=== PATIENT | male | born 1940 | race Caucasian/White ===

== ENCOUNTER 2020-11-01 22:30 | Emergency (ER) | payer MEDICARE ==
[2020-11-01 23:24] LABS: INR-International Normal Ratio 2.5; PTT 40.4 sec (22.0-33.0); Prothrombin Time 26.9 sec (9.5-12.1)
[2020-11-01 23:53] LABS: #Basophils 0.1 10x3/uL (0.0-0.2); #Eosinphils 0.1 10x3/uL (0.0-0.5); #Monocytes 0.6 10x3/uL (0.0-1.1); #Neutrophils 8.1 10x3/uL (1.5-8.4); %Basophils 0.5 % (0.0-2.0); %Eosinophils 0.7 % (0.0-6.0); %Lymphocytes 6.1 % (18.0-47.0); %Monocytes 5.9 % (0.0-10.0); %Neutrophils 86.3 % (40.0-75.0); Hemoglobin 11.8 g/dL (13.5-17.5); Mean Corpuscular HGB CONC 31.7 g/dL (32.0-36.0); Mean Corpuscular Hemoglobin 27.1 pg (27.0-33.0); Mean Corpuscular Volume 85.5 fl (81.2-95.1); Mean Platelet Volume 8.9 fl (7.4-10.4); Platelet Count 189 10x3/uL (150-450); RBC Distribution Width 14.1 % (11.5-14.5); Red Blood Cell (RBC) Count 4.35 10x6/uL (4.32-5.72); White Blood Cell (WBC) Count 9.4 10x3/uL (3.5-10.5)
== END 2020-11-02 00:45 | disposition home or self-care (01) ==
LOC: CSHERS 22:30
DX: S80.02XA Contusion of left knee, initial encounter (principal); S60.221A Contusion of right hand, initial encounter; S50.312A Abrasion of left elbow, initial encounter; S00.01XA Abrasion of scalp, initial encounter; W01.0XXA Fall on same level from slipping, tripping and stumbling without subsequent striking against object, initial encounter
CPT/HCPCS: 70450; 85025; 85610; 85730

== ENCOUNTER 2021-07-27 15:06 | Emergency (ER) | payer MEDICARE ==
[2021-07-27] MEDS ORDERED: Amoxicillin/Potassium Clav 875 MG TAB ONE (17:55)
[2021-07-27] MEDS ORDERED: Boostrix 0.5 ML (Tdap) VIAL ONE (17:56)
== END 2021-07-27 18:29 | disposition home or self-care (01) ==
LOC: CSHERS 15:06
DX: S02.2XXA Fracture of nasal bones, initial encounter for closed fracture (principal); S01.21XA Laceration without foreign body of nose, initial encounter
CPT/HCPCS: 12013; 70450; 70486; 90471; 90715

== ENCOUNTER 2021-08-03 10:29 | Emergency (ER) | payer MEDICARE ==
[2021-08-03] MEDS ORDERED: Bacitracin 1 PK ONE (11:40)
== END 2021-08-03 11:40 | disposition home or self-care (01) ==
LOC: CSHERS 10:29
DX: S01.21XD Laceration without foreign body of nose, subsequent encounter (principal)